=== PATIENT | male | born 1960 | race Caucasian/White ===

== ENCOUNTER 2020-09-12 07:28 | Emergency (ER) | payer BC, SELFPAY ==
[2020-09-12 07:49] VITALS: BP 139/93; PULSE 66; RESP 15; TEMP 36.5; O2SAT 98
--- NOTE | 2020-09-12 08:03 | ED.GENADUL_ITS ---
Discharge Plan Disposition Patient Disposition: HOME Condition: Stable Discharge Details Clinical Impression: Rash, Generalized pruritus Primary Care Provider: Pa Espinoza ED Provider: Yuni Bales Home Meds and New Rx's Prescriptions: No Action chlorthalidone 25 mg Tablet 25 mg PO DAILY RF: 0 lisinopril 40 mg Tablet 40 mg PO DAILY RF: 0 Discharge Instructions Instructions: Acute Rash (ED) Additional Instructions: Please return immediately to the emergency department if you develop any new or worsening symptoms, if your condition does not improve as expected, or if you become otherwise concerned. It is extremely important that you call soon as possible to make an appointment to be seen in follow-up for this visit by your primary care doctor. Referrals: Pa Espinoza [Primary Care Provider] - Medical Decision Making Alec Castañeda is a 59 y/o man with history of hypertension who presented to the emergency department with itchy rash over the past 3 days. On exam patient is very well and nontoxic-appearing. Mild urticaria to the anterior chest. There is no other rash noted, no petechiae, no excoriations. No rash to the palms. Concern for urticaria of unknown etiology at this time. Exam/history at this time is not consistent with impending airway compromise, emergent metabolic/electrolyte derangement, infectious etiology, emergent biliary process, toxic shock syndrome, TEN, Velez-Adan syndrome, anaphylaxis, other acute emergent medical problem. Plan for 1 dose prednisone given that patient is scheduled to receive his second Covid 19 vaccination in 2 days. I did discuss that given time course is unlikely that symptoms are related to his first dose of vaccine, and risks/benefits of getting second dose. Patient notes that he had no effect from first dose of vaccine other than brief tachycardia within minutes of receiving his first dose of subsided and under 15 minutes without intervention. I encouraged patient to discuss further with his PCP if he has concerns regarding second dose Covid vaccine. Discussed continuation of home Benadryl use (50 mg every 6 hours as needed) in addition to stopping topical Caladryl. I had a lengthy discussion with Patient regarding return to emergency department precautions, home care, and importance of outpatient follow-up. Pt verbalizes understanding of the plan and is amenable. Patient discharged to home with clear plan for outpatient follow-up. All questions were answered. Disposition decision was made weighing the risks and benefits of hospitalization versus outpatient treatment, the risk for further decompensation, and the patient's wishes. Medical Records Medical records reviewed: Yes I reviewed the patient's medical records. HPI General Mode of arrival: ambulatory . Date/Time Provider Initiated Documentation: 09/12/20 07:45 . Limitations to Documentation: no limitations . Information obtained by: patient, RN notes reviewed and old records reviewed . HPI Narrative: Alec Castañeda is a 59-year-old man with history of hypertension presenting to emergency department with itchy rash. Patient reports that 3 days ago he developed hives and itching. He reports that this has been persistent since onset. Patient reports that he initially was taking no [id number] meds, and then yesterday began taking p.o. Benadryl and also using topical Caladryl lotion. Patient reports that he had mild relief with Benadryl. Patient states that he got his first dose of Covid vaccine on 08/17/2020, and is scheduled to get the second in 2 days on 09/14/2020. Patient states that he presents emergency department wondering whether he should still get the second dose. He denies any change in his medications recently, denies any new detergents or soap, denies any new food exposures. Patient is in his home with no changes to his living situation. He states that he has been eating and drinking as usual. He denies any pain, cough, shortness of breath, vomiting, diarrhea, numbness, weakness, swelling. Patient reports that he had a similar episode of hives/itching approximately 25 years ago, with no known cause. Patient states itching/rash is located on his posterior scalp, chest, forearms, and inner thighs. He denies allergies. Related Data Home Medications Medication Instructions Recorded Confirmed chlorthalidone 25 mg PO DAILY 09/12/20 09/12/20 lisinopril 40 mg PO DAILY 09/12/20 09/12/20 Allergies Allergy/AdvReac Type Severity Reaction Status Date / Time No Known Allergies Allergy Unverified 09/12/20 07:48 General Stated Complaint: Allergic ANGELA: 3 Review of Systems Narrative: Constitutional: denies fevers Eyes: denies eye pain ENT: denies ear pain, dental pain, sore throat, difficulty swallowing Cardiovascular: denies chest pain, edema Respiratory: denies SOB, cough GI: denies abdominal pain, vomiting, diarrhea : denies flank pain MSK: denies back pain, neck pain, arthralgias, myalgias Skin: Reports rash as per HPI Neuro: denies headaches, numbness, weakness PFSH Social History Smoking risk assessment performed?: No Do you feel safe at home: Yes Do you feel safe in your relationship?: Yes Exam Narrative Exam Narrative: Constitutional: well and [id number], pleasant, conversing normally HENT: head atraumatic/normocephalic/normal inspection, no scalp rash noted, mucous membranes moist, normal voice Eyes: conjunctiva normal, sclera normal, pupils 3mm b/l Neck: no stridor, normal ROM, trachea midline Chest: Fine urticaria to the anterior chest with confluence Resp: normal work of breathing, speaking in full sentences Cardio: normal rate, normal rhythm GI: non-distended, normal inspection Back: normal inspection, no rash Skin: warm, dry, normal color, no rash or skin changes noted other than to chest as above, does not involve palms Neuro: alert, not altered, grossly non-focal, normal tone Ext: no edema, no rash noted to forearms or inner thighs Psych: normal mood, normal affect, normal behavior Course Vital Signs Vital signs: Vital Signs Temperature 36.5 C 09/12/20 07:49 Pulse 66 09/12/20 07:49 Respiratory Rate 15 09/12/20 07:49 Blood Pressure 139/93 H 09/12/20 07:49 Pulse Oximetry 98 09/12/20 07:49 Temperature 36.5 C 09/12/20 07:49 Temperature Source Temporal Artery Scan 09/12/20 07:49 Pulse 66 09/12/20 07:49 Respiratory Rate 15 09/12/20 07:49 Respiratory Effort Non-Labored 09/12/20 07:53 Respiratory Pattern Normal 09/12/20 07:53 Blood Pressure 139/93 H 09/12/20 07:49 Blood Pressure Position Sitting 09/12/20 07:49 Pulse Oximetry 98 09/12/20 07:49 Oxygen Delivery Method Room Air 09/12/20 07:49 Oxygen Flow Rate 0 09/12/20 07:49 Pain Level 0 09/12/20 07:49
[2020-09-12] MEDS: predniSONE 20 MG TAB 60 MG PO (08:05)
== END 2020-09-12 08:09 | disposition home or self-care (01) ==
PROVIDERS: Emergency Provider Student in an Organized Health Care Education/Training Program; PCP Neuromusculoskeletal Medicine & OMM
DX: L50.0 Allergic urticaria (principal); L29.9 Pruritus, unspecified
CPT/HCPCS: 99283; J7512

== ENCOUNTER 2021-02-12 10:10 | Emergency (ER) | payer BC, SELFPAY ==
[2021-02-12 10:18] VITALS: BP 139/86; PULSE 88; TEMP 36.5; O2SAT 97
--- NOTE | 2021-02-12 10:28 | W.ED.GENAD ---
Discharge Plan Disposition Patient Disposition: HOME Condition: Stable Discharge Details Clinical Impression: Laceration of toe Primary Care Provider: Pa Espinoza ED Provider: Stacie Nguyen Home Meds and New Rx's Prescriptions: Continued chlorthalidone 25 mg Tablet 25 mg PO DAILY RF: 0 lisinopril 40 mg Tablet 40 mg PO DAILY RF: 0 Discharge Instructions Instructions: Laceration (ED) Additional Instructions: Keep wound clean, dry, covered. Monitor for signs of infection and pain attention five-point including redness, warmth, drainage, increased pain, fever/chills. If you develop these other new/worsening symptoms please seek care urgently once again. Please allow Steri-Strips to fall off naturally, do not pick or pull at these. Please follow-up with primary care this week for reevaluation wound check. It is been too long since the initial injury to processing sutures at this time. However, to help keep the wound is reapproximated as possible, please continue with the postoperative shoe while wound heals. Referrals: Pa Espinoza [Primary Care Provider] - Discharge Data Discharge Date/Time-TO BE ENTERED AT DEPARTURE: 02/12/21 11:38 Medical Decision Making Patient is a pleasant 60 year old male presenting today with c/c of laceration to plantar aspect of right toe. This occurred around 5pm last night when he cut his toe on the stairs while carrying laundry. Suffered much more superficial wound to second toe. Denies other injury at the time of the incident. States he cleaned the wound well. Tetanus UTD. Denies N/T. Patient did put OTC agent to help stop bleeding on the wound, unknown ingredients. On exam, patient appears nontoxic. He has a 3cm laceration in the crease of the right great toe. No evidence of infection. Area is macerated. No FB or debris is noted. Sensation and capillary refill intact. Patient and I discussed wound care at length. Given length of time since injury, as well as location, I am concerned about infection if suture closure was performed. Will cleanse and reapproximate with steri-strips in loose fashion. Will also place in post-op shoe to help support and prevent stress on the wound. Please see note. Patient tolerated this well. Cleansed with sterile saline and explored to base in bloodless field. No FB or debris noted. Deep structures intact. Patient and I discussed wound care in depth. Given location, concerned for infection. Abx not indicated at this time but I did recommend close f/u with PCP for reevalution and wound check this week. All of his quesitons and concerns were addressed, he is mukesh greement with this plan. HPI General Mode of arrival: ambulatory. Date/Time Provider Initiated Documentation: 02/12/21 10:28. Limitations to Documentation: no limitations. Information obtained by: patient and RN notes reviewed. History of Present Illness 60 year old M presents to the emergency department with the chief complaint of right toe laceration, described as mild, with intensity rated at 2. Quality is described as aching, and is localized to the right and lower extremity. Patient reports no radiation. Patient started experiencing this day(s) (1) and it has been constant. Immobilization improves symptom(s), Movement worsens symptoms . Patient notes no other symptoms.. Patient did receive the following treatments prior to arrival, none Related Data Home Medications Medication Instructions Recorded Confirmed chlorthalidone 25 mg PO DAILY 09/12/20 02/12/21 lisinopril 40 mg PO DAILY 09/12/20 02/12/21 Allergies Allergy/AdvReac Type Severity Reaction Status Date / Time No Known Allergies Allergy Unverified 02/12/21 10:21 General Stated Complaint: Laceration ANGELA: 4 Review of Systems Constitutional Constitutional: Reports as per HPI, Denies chills and Denies fever(s) Musculoskeletal Musculoskeletal: Reports as per HPI Integumentary/Breasts Skin/Breast: Reports as per HPI Neurologic Neurologic: Reports as per HPI, Denies sensory deficit and Denies paresthesias [facility] Social History Smoking/Tobacco Use Status: Never Smoking risk assessment performed?: Yes Alcohol Intake: current Alcohol Intake frequency: 0-2 drinks per day Alcohol type: wine Drug use: Never Substance use type: does not use Do you feel safe at home: Yes Do you feel safe in your relationship?: Yes Exam Const General: cooperative, healthy appearing, comfortable, no acute distress and well developed Nutritional Appearance: average body habitus and well nourished Orientation: alert and awake Resp Effort & Inspection: normal respiratory effort, able to speak in complete sentences and no respiratory distress Cardio Rate: regular rate Rhythm: regular rhythm Skin Trauma: laceration Neuro General: patient alert and patient awake Cognition: normal cognition Speech: speech normal Gait: normal gait Sensory Exam: no sensory deficits noted Extrem Ankle/foot/toe images: 1. Patient's laceration into the subcutaneous tissue. Skin around this is macerated. No erythema, warmth, discharge. Wound approximately 3mc in length. Swlling to the area is causing gap between the edges of about 3mm. Sensation is intact distally. He has intact capillary refill. Good ROM of toe 2. Superficial small abrasion. No erythema, warmth, drainage. Psych Appearance: grossly normal and well kempt Mental Status: mental status grossly normal Speech and Movement: speech and movement normal Course Vital Signs Vital signs: Vital Signs Temperature 36.5 C 02/12/21 10:18 Pulse 88 02/12/21 10:18 Blood Pressure 139/86 02/12/21 10:18 Pulse Oximetry 97 02/12/21 10:18 Temperature 36.5 C 02/12/21 10:18 Temperature Source Temporal Artery Scan 02/12/21 10:18 Pulse 88 02/12/21 10:18 Respiratory Effort Non-Labored 02/12/21 10:20 Blood Pressure 139/86 02/12/21 10:18 Blood Pressure Position Sitting 02/12/21 10:18 Pulse Oximetry 97 02/12/21 10:18 Oxygen Delivery Method Room Air 02/12/21 10:18 Oxygen Flow Rate 0 02/12/21 10:18 Pain Level 2 02/12/21 10:18 Procedures Laceration Laceration 1: Site: lower extremity Side (If applicable): right Size (cm): 3 Description: linear Depth: simple, single layer Pre-repair: wound explored, irrigated extensively and deep structures intact Skin layer closed with: other (steri strips and benzoin)
== END 2021-02-12 11:38 | disposition home or self-care (01) ==
PROVIDERS: Emergency Provider Physician Assistant; PCP Neuromusculoskeletal Medicine & OMM
DX: S91.111A Laceration without foreign body of right great toe without damage to nail, initial encounter (principal); W26.8XXA Contact with other sharp object(s), not elsewhere classified, initial encounter
CPT/HCPCS: 99283

== ENCOUNTER 2023-03-28 19:13 | Outpatient (REF) | payer BC, SELFPAY ==
[2023-03-28 19:58] LABS: ALT 33 U/L (16-63); AST 32 U/L (15-37); Albumin 4.2 g/dL (3.4-5.0); Alkaline Phosphatase 94 U/L (46-116); Anion Gap 9.4 mmol/L (3-11); BUN 12 mg/dL (7-18); Bilirubin, Total 1.3 mg/dL (0.2-1.0); CO2 29.6 mmol/L (21.0-32.0); CREATININE 0.8 mg/dL (0.70-1.30); Calcium 9.6 mg/dL (8.5-10.1); Calculated LDL 72 mg/dL (<100); Chloride 104 mmol/L (98-107); Cholesterol 202 mg/dL (<200); Estimated GFR 100.06 (mL/min/1.73m2); Glucose 94 mg/dL (74-106); HDL Cholesterol 122 mg/dL (40-60); Potassium 4.3 mmol/L (3.5-5.1); Sodium 143 mmol/L (136-145); Total Protein 7.4 g/dL (6.4-8.2); Triglyceride 41 mg/dL (<150)
== END 2023-03-28 19:14 | disposition home or self-care (01) ==
LOC: NCHCN 19:13
PROVIDERS: Visit Provider Nurse Practitioner Family
DX: I10 Essential (primary) hypertension (principal); E78.5 Hyperlipidemia, unspecified; E66.9 Obesity, unspecified
CPT/HCPCS: 80053; 80061

== ENCOUNTER 2024-03-24 22:08 | Outpatient (REF) | payer BC, SELFPAY ==
[2024-03-24 19:35] LABS: ALT 39 U/L (16-63); AST 31 U/L (15-37); Alkaline Phosphatase 82 U/L (46-116); Anion Gap 9.2 mmol/L (3-11); BUN 16 mg/dL (7-18); Bilirubin, Total 1.29 mg/dL (0.2-1.0); CO2 28.8 mmol/L (21.0-32.0); CREATININE 0.7 mg/dL (0.70-1.30); Calcium 9.5 mg/dL (8.5-10.1); Calculated LDL 51 mg/dL (<100); Chloride 102 mmol/L (98-107); Cholesterol 170 mg/dL (<200); Estimated GFR 103.53 (mL/min/1.73m2); Glucose 109 mg/dL (74-106); HDL Cholesterol 111 mg/dL (40-60); Potassium 3.7 mmol/L (3.5-5.1); Sodium 140 mmol/L (136-145); Total Protein 7.3 g/dL (6.4-8.2); Triglyceride 41 mg/dL (<150)
== END 2024-03-24 22:09 | disposition home or self-care (01) ==
LOC: NCHCN 22:08
PROVIDERS: PCP Nurse Practitioner Family; Visit Provider Nurse Practitioner Family
DX: I10 Essential (primary) hypertension (principal); E78.5 Hyperlipidemia, unspecified
CPT/HCPCS: 80053; 80061

== ENCOUNTER 2025-03-30 08:58 | Outpatient (REF) | payer BC, SELFPAY ==
[2025-03-30 20:24] LABS: ALT 35 U/L (16-63); AST 29 U/L (15-37); Albumin 4.2 g/dL (3.4-5.0); Alkaline Phosphatase 82 U/L (46-116); Anion Gap 8.4 mmol/L (3-11); BUN 12 mg/dL (7-18); Bilirubin, Total 1.0 mg/dL (0.2-1.0); CO2 32.6 mmol/L (21.0-32.0); Calcium 10.1 mg/dL (8.5-10.1); Calculated LDL 60 mg/dL (<100); Chloride 101 mmol/L (98-107); Cholesterol 173 mg/dL (<200); Estimated GFR 107.80 (mL/min/1.73m2); Glucose 102 mg/dL (74-106); HDL Cholesterol 100 mg/dL (>or=40); Potassium 4.2 mmol/L (3.5-5.1); Sodium 142 mmol/L (136-145); Total Protein 7.7 g/dL (6.4-8.2); Triglyceride 68 mg/dL (<150)
[2025-03-30 20:44] LABS: Hemoglobin A1C 5.5 % (<5.7)
[2025-03-31 18:18] LABS: PSA, Screening 2.3 ng/mL (<=4.5)
== END 2025-03-30 08:59 | disposition home or self-care (01) ==
LOC: NCHCN 08:58
PROVIDERS: PCP Nurse Practitioner Family; Visit Provider Nurse Practitioner Family
DX: I10 Essential (primary) hypertension (principal); E78.5 Hyperlipidemia, unspecified; Z12.5 Encounter for screening for malignant neoplasm of prostate; E66.9 Obesity, unspecified
CPT/HCPCS: 80053; 80061; 84153; 83036